=== PATIENT | female | born 2000 | race Caucasian/White ===

== ENCOUNTER 2021-07-06 00:03 | Emergency (ER) | payer OTHER ==
--- NOTE | 2021-07-06 01:23 | CR ---
Indication: Shortness of breath Technique: Chest 1 view Comparison: None Findings/Impression: Cardiovascular and mediastinum: Heart size and vasculature are normal in caliber and appearance. Lungs and pleural space: Lungs are clear. No sign of infiltrate or mass. No sign of pleural effusion. No pneumothorax. Bones and soft tissues: No acute findings. Dictated by Uli Mora MD @ 07/06/2021 1:21:55 AM (Electronically Signed)
[2021-07-06] MEDS ORDERED: Dexamethasone 4 MG Tab PO ONE (01:45)
--- NOTE | 2021-07-06 01:47 | EDM.PDOC ---
ED HPI GENERAL MEDICAL PROBLEM - General Chief Complaint: Respiratory Problem Stated Complaint: SHORTNESS OF BREATH Time Seen by Provider: 07/06/21 00:21 - History of Present Illness INITIAL COMMENTS - FREE TEXT/NARRATIVE: CHIEF COMPLAINT(S): Tightness in my chest HISTORY OF PRESENT ILLNESS: This is a 20-year-old girl with a past medical history of recurrent pneumonia and prior history of hypogammaglobulinemia who comes to the emergency department with a chief complaint of tightness in chest. Patient states that she has asthma and when she starts feeling pain and tightness in her chest associate with a cough she knows she has a pneumonia. She states she was told by her mother to come in so she could get evaluated for possible pneumonia. She states that the tightness is throughout her chest and describes it also as pain. She states it is not sharp and it does not radiate. She rates her pain as 6 out of 10. She states that she has an associated productive cough and has been using her nebulizer which did help a little prior to arrival. She does states that she does not get fevers but she does have some chills. She denies any syncope, recent travel, recent surgery, prior history of DVT or PE. There are no exacerbating or relieving factors for her pain or tightness. She states that this has been going on for approximately 2 days. REVIEW OF SYSTEMS: Constitutional: Positive for chills. Denies fever Eyes: Denies eye pain Ears, Nose, Mouth, & Throat: Denies earache Cardiovascular: Positive for chest tightness Respiratory: Positive for shortness of breath and productive cough Gastrointestinal: Denies Nausea, vomiting, diarrhea, hematochezia. Genitourinary: Denies hematuria Skin:Denies a rash MSK: Denies joint pain Neurological: Denies blurred vision Psychiatric: Denies depression PAST MEDICAL HISTORY: As per history of present illness and as reviewed below otherwise noncontributory. SURGICAL HISTORY: As per history of present illness and as reviewed below otherwise noncontributory. SOCIAL HISTORY: As per history of present illness and as reviewed below otherwise noncontributory. FAMILY HISTORY: As per history of present illness and as reviewed below otherwise noncontributory. EXAMINATION OF ORGAN SYSTEMS/BODY AREAS: Constitutional: Blood pressure is 117/67, heart rate 101, respiratory rate 16 with an oxygen saturation 98% on room air. Temperature is 36.3. General: Well-appearing woman who is in no acute distress Psychiatric: Appropriate mood and affect. Eyes: No scleral icterus or conjunctival erythema ENMT: Moist mucous membranes. No pharyngeal erythema Cardiovascular: Regular, rate, and rhythm. No gallops, murmurs, or rubs. Bilateral upper extremity pulses symmetric and intact. No peripheral edema. No JVD. Respiratory: Lungs clear to auscultation bilaterally. No wheezes, rales, or rhonchi. Gastrointestinal: Soft, non-tender, non-distended. Normoactive bowel sounds Genitourinary: No suprapubic tenderness Musculoskeletal: Normal range of motion. Skin: No lesions or abrasions. Neurological: Alert, GCS 15 MEDICAL DECISION MAKING AND COURSE IN THE ED WITH INTERPRETATION/REVIEW OF DIAGNOSTIC STUDIES: This is a 20-year-old woman with a past medical history of asthma, hypogammaglobulinemia, recurrent pneumonia who comes to the emergency department with 2 days of chest tightness and productive cough who is afebrile with mild tachycardia. Given that the patient improved prior to arrival with albuterol treatment this could be secondary to asthma exacerbation. However given her history will obtain a chest x-ray to evaluate for pneumonia. The patient does not clinically have pneumonia. We will also hold off on this time until her labs are back to evaluate need for possible steroids. She was amenable to this plan. DDx: Asthma exacerbation, pneumonia, COVID-19 Laboratory: Covid is negative, influenza negative. The radiological images were viewed by myself along with reading the report from the radiologist. Chest x-ray does not reveal any acute cardiopulmonary process. After labs and imaging I did discuss results with the patient. At this time the patient does not have any evidence of pneumonia. I did discuss that I had be p roviding her with steroids for asthma exacerbation. In addition I did discuss that she should use her inhaler at home. She was given strict return precautions. She was amenable to discharge and had no further questions. DISPOSITION: The patient was discharged home in stable condition. The patient will follow up with primary care physician in 3 to 5 days CONDITION: Fair PROCEDURES: None FINAL IMPRESSION(S)/DIAGNOSES: 1. Acute wheezing likely secondary asthma exacerbation Alfred Roper M.D. Right Lower Chest Pain Score (Numeric/FACES): 6 - Related Data Allergies Allergy/AdvReac Type Severity Reaction Status Date / Time No Known Allergies Allergy Verified 07/06/21 00:21 Home Meds: Home Meds Albuterol Sulfate [Albuterol Sulfate Hfa] 8.5 gm IH Q4HR #1 hfa.[email or web address] 07/06/21 [Rx] Etonogestrel/Ethinyl Estradiol [Etonogestrel-Ee Vaginal Ring] 07/06/21 [History] Past Medical History Respiratory History: Reports: Asthma, Pneumonia, Recurrent Hematologic History: Reports: Anemia, B12 Deficiency Social & Family History - Tobacco Use Tobacco Use Status *Q: Never Tobacco User Second Hand Smoke Exposure: No - Recreational Drug Use Recreational Drug Use: No ED ROS GENERAL - Review of Systems Review Of Systems: See Below ED EXAM, GENERAL - Physical Exam Exam: See Below Course - Vital Signs Last Recorded V/S: Last Vital Signs Temp 36.3 C 07/06/21 00:14 Pulse 101 H 07/06/21 00:14 Resp 16 07/06/21 00:14 BP 117/67 07/06/21 00:14 Pulse Ox 98 07/06/21 00:14 - Orders/Labs/Meds Labs: Laboratory Tests 07/06/21 Range/Units 00:50 SARS-CoV-2 RNA ([facility]) NEGATIVE (NEGATIVE) Meds: Medications Discontinued Medications Generic Name Dose Route Start Last Admin Trade Name Vince PRN Reason Stop Dose Admin Dexamethasone 10 mg 07/06/21 01:45 07/06/21 01:58 Dexamethasone 4 Mg Tab PO 07/06/21 01:46 10 mg ONETIME ONE Administration Departure - Departure Time of Disposition: 01:46 Disposition: Home, Self-Care 01 Condition: Fair Clinical Impression: Cough, Asthma - Discharge Information *PRESCRIPTION DRUG MONITORING PROGRAM REVIEWED*: No *COPY OF PRESCRIPTION DRUG MONITORING REPORT IN PATIENT STEVE: No Prescriptions: Albuterol Sulfate [Albuterol Sulfate Hfa] 8.5 gm IH Q4HR #1 hfa.aer.ad Instructions: Asthma, Adult, Upper Respiratory Infection, Adult, [id number] Referrals: Mary Beth Vieira PA[facility]IMMER [Primary Care Provider] - Forms: ED Department Discharge Additional Instructions: Your evaluated today on an emergent basis. At this time given that your symptoms did improve with albuterol prior to arrival I do believe you are experiencing an asthma exacerbation. This may be caused due to a virus however your Covid and influenza were negative. I recommend you schedule your albuterol treatments at home and we did provide you with some steroids here. If you have any worsening shortness of breath or chest pain I would like you to return to the emergency department. There was no evidence of any pneumonia on examination or on chest x-ray. Please follow-up with primary care physician in 3 to 5 days [facility] [id number], [place] [address] [facility] [address] [place] [id number] The patient is informed of any results of their evaluation and diagnostic workup and all questions are answered. They are given discharge instructions and return precautions. The patient is stable for discharge. The patient states they understand and agree with the plan and that they will return if their symptoms get worse or if they have any new concerns. The following information is given to patients seen in the emergency department who are being discharged to home. This information is to outline your options for follow-up care. We provide all patients seen in our emergency department with a follow-up referral. The need for follow-up, as well as the timing and circumstances, are variable d epending upon the specifics of your emergency department visit. If you don't have a primary care physician on staff, we will provide you with a referral. We always advise you to contact your personal physician following an emergency department visit to inform them of the circumstance of the visit and for follow-up with them and/or the need for any referrals to a consulting specialist. The emergency department will also refer you to a specialist when appropriate. This referral assures that you have the opportunity for follow-up care with a specialist. All of these measure are taken in an effort to provide you with optimal care, which includes your follow-up. Under all circumstances we always encourage you to contact your private physician who remains a resource for coordinating your care. When calling for follow-up care, please make the office aware that this follow-up is from your recent emergency room visit. If for any reason you are refused follow-up, please contact the [facility] Emergency Department at and asked to speak to the emergency department charge nurse. Sepsis Event Note (ED) - Evaluation Sepsis Screening Result: No Definite Risk - Focused Exam Vital Signs: Vital Signs Temp Pulse Resp BP Pulse Ox 07/06/21 00:14 36.3 C 101 H 16 117/67 98
== END 2021-07-06 02:00 | disposition home or self-care (01) ==
LOC: MW.ED 00:03
DX: J45.901 Unspecified asthma with (acute) exacerbation (principal); Z20.822 Contact with and (suspected) exposure to COVID-19; Z79.899 Other long term (current) drug therapy
CPT/HCPCS: 71045; 87635; 87804; 99285; J8540; U0002